=== PATIENT | female | born 1960 | race Caucasian/White ===

== ENCOUNTER 2023-06-02 09:54 | Day surgery (SDC) | payer BC ==
[2023-05-31 16:16] VITALS: BMI 17.2
[2023-06-02] MEDS ORDERED: Bupivacaine PF 0.5% 30 ML VIAL ONE (10:10)
[2023-06-02] MEDS ORDERED: Lidocaine 2% PF 5 ML VIAL ONE (11:52)
[2023-06-02] MEDS ORDERED: Midazolam HCl 2 mg/2 ml Vial ONE (11:52)
[2023-06-02] MEDS ORDERED: PROPOFOL 20 ML ONE (11:52)
[2023-06-02] MEDS ORDERED: Dexamethasone 4 mg/ml Vial ONE (11:52)
[2023-06-02] MEDS ORDERED: Ondansetron PF 4 MG/2 ML Vial ONE (11:52)
[2023-06-02] MEDS ORDERED: fentaNYL 50 mcg/mL 1 mL Vial ONE (11:52)
[2023-06-02] MEDS ORDERED: CEFAZOLIN 1 GM VIAL ONE (12:03)
== END 2023-06-02 14:20 | disposition home or self-care (01) ==
LOC: CSHSDC 09:54
PROVIDERS: ATTEND Podiatrist Foot & Ankle Surgery
PROC: 0SGP04Z Fusion of Right Toe Phalangeal Joint with Internal Fixation Device, Open Approach (ICD-10-PCS; principal; 2023-06-02)
DX: M20.41 Other hammer toe(s) (acquired), right foot (principal); F41.9 Anxiety disorder, unspecified; I10 Essential (primary) hypertension; Z79.899 Other long term (current) drug therapy
CPT/HCPCS: C1713; J0665; J0690; J1100; J2001; J2250; J2405; J2704; J3010

== ENCOUNTER 2023-09-04 12:07 | Outpatient (CLI) | payer BC | END 2023-09-04 12:08 | disposition home or self-care (01) | LOC: CSHMAMMO 12:07 | PROVIDERS: ATTEND Family Medicine | DX: Z12.31 Encounter for screening mammogram for malignant neoplasm of breast (principal); Z80.3 Family history of malignant neoplasm of breast; Z91.89 Other specified personal risk factors, not elsewhere classified | CPT/HCPCS: 77063; 77067 ==